=== PATIENT | female | born 1995 | race Hispanic/Latino ===

== ENCOUNTER 2018-12-14 14:41 | Emergency (ER) | payer BC ==
[2018-12-14 16:55] LABS: #Basophils 0.1 thou/uL (0.0-0.2); #Eosinphils 0.2 thou/uL (0.0-0.7); #Lymphocytes 3.4 thou/uL (1.20-3.40); #Monocytes 0.5 thou/uL (0.11-0.59); #Neutrophils 5.3 thou/uL (1.40-6.50); %Basophils 1.1 % (0.0-1.0); %Eosinophils 1.7 % (0.0-10.0); %Lymphocytes 35.8 % (21.0-51.0); %Monocytes 5.4 % (0.0-10.0); %Neutrophils 56.1 % (42.0-75.0); Hemoglobin 13.5 g/dL (12.0-16.0); Mean Corpuscular HGB CONC 34.5 g/dL (32.0-36.0); Mean Corpuscular Hemoglobin 29.5 pg (27.0-31.0); Mean Corpuscular Volume 85.4 fL (78.0-98.0); Mean Platelet Volume 10.4 fL (7.4-10.4); Platelet Count 164 thou/uL (130-400); RBC Distribution Width 11.8 % (11.5-14.5); Red Blood Cell (RBC) Count 4.59 mill/uL (4.20-5.40); White Blood Cell (WBC) Count 9.5 thou/uL (4.8-10.8)
[2018-12-14 17:17] LABS: ALT (SGPT) 111 U/L (8-55); AST (SGOT) 55 U/L (5-34); Albumin 4.5 g/dL (3.5-5.0); Alkaline Phosphatase 67 U/L (40-150); Anion Gap 11 mmol/L (10-20); BUN (Urea Nitrogen) 7 mg/dL (7.0-18.7); Bilirubin, Total 0.9 mg/dL (0.2-1.2); Calc. Creatinine Clearance 0 mL/min (70-130); Calcium 10.2 mg/dL (7.8-10.44); Carbon Dioxide 27 mmol/L (22-29); Chloride 103 mmol/L (98-107); Estimated GFR-MDRD Greater than 90; Globulin 3.6 g/dL (2.4-3.5); Glucose 121 mg/dL (70-105); Potassium 3.6 mmol/L (3.5-5.1); Protein, Total 8.1 g/dL (6.0-8.3); Sodium 137 mmol/L (136-145)
--- NOTE | 2018-12-14 17:20 | CT ---
CT abdomen and pelvis: 12/14/2018 COMPARISON: None HISTORY: Right lower quadrant pain TECHNIQUE: Axial CT imaging obtained at 5 mm intervals from the lung bases through the pubic symphysi s with IV contrast. Coronal reformatted imaging obtained. FINDINGS: The lack of oral contrast limits assessment of the bowel. The imaged lung bases appear unremarkable. No free intraperitoneal air or fluid. The hepatic parenchyma is hypodense, suggesting steatosis. The liver appears otherwise unremarkable. The spleen, gallbladder, pancreas, adrenal glands, and kidneys appear unremarkable. Trace free fluid noted in the pelvis. Limited assessment of the bowel demonstrates no evidence for inflammatory change or obstruction. The appendix is visualized and appears within normal limits. There is a round lesion in the right hemipelvis with Hounsfield units of 10 measuring 5.0 x 4.4 cm, m ost consistent with a right ovarian cyst. There is a partially collapsed cyst/follicle within the left ovary measuring 1.6 cm in greatest dimension. The vascular structures of the abdomen/pelvis appear patent. No lymphadenopathy is seen within the ab domen/pelvis. Osseous structures of the abdomen/pelvis demonstrate no acute findings. IMPRESSION: 5 cm right ovarian cyst.
== END 2018-12-14 18:11 | disposition home or self-care (01) ==
LOC: ERS 14:41
DX: N83.201 Unspecified ovarian cyst, right side (principal); F17.200 Nicotine dependence, unspecified, uncomplicated; R11.0 Nausea
CPT/HCPCS: 74177; 80053; 85025; 96360

== ENCOUNTER 2019-11-27 11:46 | Inpatient (IN) | payer BC ==
[2019-11-27 12:17] LABS: #Basophils 0.1 thou/uL (0.0-0.2); #Eosinphils 0.1 thou/uL (0.0-0.7); #Lymphocytes 2.4 thou/uL (1.20-3.40); #Monocytes 0.5 thou/uL (0.11-0.59); #Neutrophils 6.8 thou/uL (1.40-6.50); %Basophils 0.6 % (0.0-1.0); %Eosinophils 0.7 % (0.0-10.0); %Lymphocytes 24.3 % (21.0-51.0); %Monocytes 5.4 % (0.0-10.0); %Neutrophils 69.1 % (42.0-75.0); Hemoglobin 13.4 g/dL (12.0-16.0); Mean Corpuscular HGB CONC 35.2 g/dL (32.0-36.0); Mean Corpuscular Hemoglobin 29.9 pg (27.0-31.0); Mean Corpuscular Volume 84.8 fL (78.0-98.0); Mean Platelet Volume 10.7 fL (7.4-10.4); Platelet Count 159 thou/uL (130-400); RBC Distribution Width 11.9 % (11.5-14.5); Red Blood Cell (RBC) Count 4.48 mill/uL (4.20-5.40); White Blood Cell (WBC) Count 9.9 thou/uL (4.8-10.8)
[2019-11-27 12:37] LABS: ALT (SGPT) 16 U/L (8-55); AST (SGOT) 13 U/L (5-34); Albumin 4.1 g/dL (3.5-5.0); Alkaline Phosphatase 60 U/L (40-110); Anion Gap 17 mmol/L (10-20); BUN (Urea Nitrogen) 9 mg/dL (7.0-18.7); Bilirubin, Total 0.5 mg/dL (0.2-1.2); Calc. Creatinine Clearance 0 mL/min (70-130); Calcium 10.7 mg/dL (7.8-10.44); Carbon Dioxide 20 mmol/L (22-29); Chloride 101 mmol/L (98-107); Estimated GFR-MDRD Greater than 90; Globulin 3.6 g/dL (2.4-3.5); Glucose 171 mg/dL (70-105); Lipase 38 U/L (8-78); Potassium 3.8 mmol/L (3.5-5.1); Protein, Total 7.7 g/dL (6.0-8.3); Sodium 134 mmol/L (136-145)
[2019-11-27 12:58] LABS: Bacteria/HPF None Seen HPF (None Seen); Bilirubin Negative (Negative); Blood, Urine Negative (Negative); Clarity Clear (Clear); Glucose, Urine (Dipstick) 500 mg/dL (Negative); Leukocyte 75 Leu/uL (Negative); Nitrite Negative (Negative); Protein, Urine (Dipstick) 20 mg/dL (Neg-Trace); RBC/HPF 0-3 HPF (0-3); Squamous Epithelial 0-3 HPF (0-3); Urobilinogen Normal mg/dL (Less than 2)
[2019-11-27] MEDS ORDERED: hydrALAZINE 20 MG/ML VIAL SLOW IVP PRN (13:23)
[2019-11-27] MEDS ORDERED: Promethazine HCl 25 MG/ML VIAL IM PRN (13:23)
[2019-11-27] MEDS ORDERED: Ondansetron PF 4 MG/2 ML Vial IVP PRN (13:23)
--- NOTE | 2019-11-27 13:28 | PDOC.EVN ---
Event Note - Event Note Event Note: Interim H&P 1327 I just spoke with Dr Mason in the ED who called me. This patieny of Dr shell presented to ED as an 18 week OB, G1 with possible LOF. The sono in ED shows little to no fluid. I have discussed the case on the phone with Dr Shell who is sending the chart to L&D. At 18 weeks, with positive FHTs, the hospital policy for [facility] is to observe for now. indication for delivery by policy here is IOL if fever suspected and/or active VB. I am awaiting her arrival to L&D as I have not yet seen the patient. I have placed admit orders for her as we will watch closedly for 24-48 hrs and IVF hydrate.
[2019-11-27 13:39] LABS: Hemoglobin 12.4 g/dL (12.0-16.0); Mean Corpuscular HGB CONC 35.4 g/dL (32.0-36.0); Mean Corpuscular Hemoglobin 30.1 pg (27.0-31.0); Mean Corpuscular Volume 85.2 fL (78.0-98.0); Mean Platelet Volume 10.8 fL (7.4-10.4); Platelet Count 152 thou/uL (130-400); RBC Distribution Width 11.9 % (11.5-14.5); White Blood Cell (WBC) Count 9.6 thou/uL (4.8-10.8)
--- NOTE | 2019-11-27 13:42 | ULT ---
LIMITED OBSTETRICAL ULTRASOUND: 11/27/19 INDICATION: complication. COMPARISON: None. FINDINGS: The cervix is shortened measuring on average 2.47 cm. The placenta is posterior in location. There is coverage of the placenta over the internal os consistent with a complete placenta previa. Cardiac ac tivity is noted in the intrauterine gestation of approximately 144 beats per minute. The gestation is in breech presentation. CHARISSE is significantly diminished measuring 1.2 cm. The visualized biparietal diameter was 4.11 cm giving estimated gestational age of 18 weeks and 3 day s (59th percentile). The head circumference is 15.99 cm giving estimated gestational age of 18 weeks, 6 days (69th percent ile). The abdominal circumference is 12.76 cm giving estimated gestational age of 18 weeks, 2 days (49th pe rcentile). The femoral length is 2.69 cm giving estimated gestational age of 18 weeks, 1 day (41st percentile). Estimated weight is 235 grams +/- 35 grams (0 lb. 8 oz +/- 1 oz) (48th percentile). The estimated gestational age by ultrasound is 18 weeks, 2 days. Estimated due date is 04/27/20. This corresponds to the clinical dates. IMPRESSION: 1. Findings of a live intrauterine gestation. 2. CHARISSE 1.2 cm consistent with oligohydramnios. 3. Complete placenta previa. POS: [facility]
[2019-11-27 14:32] LABS: HBSAg Index 0.14 S/CO (0-0.99); HIV (1/2) Antibody/Antigen Non-Reactive (NonReactive); HIV 1/2 INDEX 0.11 S/CO (<1.00); Hep B Surf Ag Non-Reactive S/CO (NonReactive)
[2019-11-27 14:36] LABS: Syphilis Antibody Nonreactive (Nonreactive); Syphilis Antibody Index 0.03 S/CO (<1.00 Non-Reactive)
[2019-11-27] MEDS: Lactated Ringer's 1,000 ML IV SCH ×2 (15:00→23:10)
--- NOTE | 2019-11-27 15:06 | PDOC.LDHP ---
Labor and Delivery H&P Chief complaint: loss of fluid (at 18 weeks 2 days by EDC (per Dr Uribe)), other HPI: Pt of Dr Uribe. I am at bedside now, with Dr Davis 24 yo G1 at 18 weeks 2 days with LOF x several days ago with last this AM. NO fevers, no VB, no trauma. Review of Systems: complete ROS covered Current gestational age (weeks): 18 (2 days) Dating criteria: last menstrual period Grav: 1 Para: 0 Current complications: none Abnormal US findings: Yes (severe oligo by sono in ED) Current medications: pre- vitamins Previous surgical history: none Allergies/Adverse Reactions: Allergies Allergy/AdvReac Type Severity Reaction Status Date / Time cefprozil [From Cefzil] Allergy Verified 11/27/19 13:36 Social history: other (MJ pre-. No Family HX defects) - Physical Exam Vital signs reviewed and normal: yes General: resting Heart: RRR Lungs: nonlabored breathing [place] contractions every: none - Assessment G1 po at 18 weeks previable ROM at 18 weeks, afebrile. FHTs positive. Policy reviewed with RN in charge. Expectant management favored at this time.We have adddressed limits of viability. ABX may begin at 20 weeks at earliest. Steroids at 23 weeks. IOL if fever or VB. I have discussed risks and policy of [facility] with the patient. Please see interim H&P note prior to this entry - Plan Plan: observation in L&D (serial temps, FHT checks BID. Plan for 48 hr obs ( at least 24 hrs). Detailed discussion reviewed with the patient.)
--- NOTE | 2019-11-27 15:15 | PDOC.EVN ---
Event Note - Event Note Event Note: Viability discussion: Limits of viability reviewed. Goal for viability is around 23 weeks or so. IOL is a possibility NOW at other hospitals based on EGA. Here at [facility] we do expectant care. I did explain to her that transfer to another location for possible IOL at under 20 weeks is an option to her as informed consent and risks /balance of all options available. She understands that expectant management is a possibility and that it is a [facility] [id number]. She agress to expectant care.
[2019-11-27 15:30] VITALS: BMI 33.8
[2019-11-27] MEDS ORDERED: Acetaminophen 500 MG TAB PO PRN (20:29)
[2019-11-28] MEDS: Lactated Ringer's 1,000 ML IV SCH ×3 (07:13→23:34)
--- NOTE | 2019-11-28 07:18 | PDOC.OBAPN ---
FMR OB AP PN: Sub - Interval History Hospital Day: 2 (Patient denies complaints this AM.) Chief Complaint: Previable ROM Indentification: at 18.3 wks Interval History: Denies fevers, cramping, vaginal bleeding. Tolerating PO. FMR OB AP PN: Obj - Maternal Vital signs: BP: 117/69 HR: 92 RR: 18 Tmax: 98.9 Pox: 96% on RA FMR OB AP PN: Exam - Physical Exam General: NAD, awake, alert and oriented HEENT: normocephalic and atraumatic Neck: supple Heart: RRR, normal S1/S2 General: CTAB, no respiratory distress, good air movement Abdomen: soft, gravid, non-tender, bowel sound present Musculoskeletal: pulses present Skin: no rash - Pelvic Exam Vulva: no blood FMR OB AP PN: Data - Labs Lab results: Laboratory Results - last 24 hr 11/27/19 11/27/19 11/27/19 12:04 12:04 12:04 WBC 9.9 RBC 4.48 Hgb 13.4 Hct 38.0 MCV 84.8 MCH 29.9 MCHC 35.2 RDW 11.9 Plt Count 159 MPV 10.7 H Neutrophils % 69.1 Lymphocytes % 24.3 Monocytes % 5.4 Eosinophils % 0.7 Basophils % 0.6 Neutrophils # 6.8 H Lymphocytes # 2.4 Monocytes # 0.5 Eosinophils # 0.1 Basophils # 0.1 Sodium 134 L Potassium 3.8 Chloride 101 Carbon Dioxide 20 L Anion Gap 17 BUN 9 Creatinine 0.61 Estimated GFR (MDRD) Greater than 90 Glucose 171 H Calcium 10.7 H Total Bilirubin 0.5 AST 13 ALT 16 Alkaline Phosphatase 60 Serum Total Protein 7.7 Albumin 4.1 Globulin 3.6 H Albumin/Globulin Ratio 1.1 L Lipase 38 Urine Color Urine Clarity Urine pH Ur Specific [place] Urine Protein Urine Glucose (UA) Urine Ketones Urine Blood Urine Nitrite Urine Bilirubin Urine Urobilinogen Ur Leukocyte Esterase Urine RBC Urine WBC Ur Squamous Epith Cells Urine Bacteria Syphilis IgG/IgM Ab Hep Bs Antigen HIV 1&2 Antigen & Ab Blood Type O POSITIVE Antibody Screen 11/27/19 11/27/19 11/27/19 12:35 13:31 13:31 WBC 9.6 RBC 4.10 L Hgb 12.4 Hct 34.9 L MCV 85.2 MCH 30.1 MCHC 35.4 RDW 11.9 Plt Count 152 MPV 10.8 H Neutrophils % Lymphocytes % Monocytes % Eosinophils % Basophils % Neutrophils # Lymphocytes # Monocytes # Eosinophils # Basophils # Sodium Potassium Chloride Carbon Dioxide Anion Gap BUN Creatinine Estimated GFR (MDRD) Glucose Calcium Total Bilirubin AST ALT Alkaline Phosphatase Serum Total Protein Albumin Globulin Albumin/Globulin Ratio Lipase Urine Color Yellow Urine Clarity Clear Urine pH 5.5 Ur Specific [place] 1.030 Urine Protein 20 Urine Glucose (UA) 500 A Urine Ketones 40 A Urine Blood Negative Urine Nitrite Negative Urine Bilirubin Negative Urine Urobilinogen Normal Ur Leukocyte Esterase 75 A Urine RBC 0-3 Urine WBC 4-6 A Ur Squamous Epith Cells 0-3 Urine Bacteria None Seen Syphilis IgG/IgM Ab Hep Bs Antigen Non-Reactive HIV 1&2 Antigen & Ab Non-Reactive Blood Type Antibody Screen 11/27/19 11/27/19 13:31 13:31 WBC RBC Hgb Hct MCV MCH MCHC RDW Plt Count MPV Neutrophils % Lymphocytes % Monocytes % Eosinophils % Basophils % Neutrophils # Lymphocytes # Monocytes # Eosinophils # Basophils # Sodium Potassium Chloride Carbon Dioxide Anion Gap BUN Creatinine Estimated GFR (MDRD) Glucose Calcium Total Bilirubin AST ALT Alkaline Phosphatase Serum Total Protein Albumin Globulin Albumin/Globulin Ratio Lipase Urine Color Urine Clarity Urine pH Ur Specific [place] Urine Protein Urine Glucose (UA) Urine Ketones Urine Blood Urine Nitrite Urine Bilirubin Urine Urobilinogen Ur Leukocyte Esterase Urine RBC Urine WBC Ur Squamous Epith Cells Urine Bacteria Syphilis IgG/IgM Ab Nonreactive Hep Bs Antigen HIV 1&2 Antigen & Ab Blood Type O POSITIVE Antibody Screen NEGATIVE FMR OB AP PN: A/P - Problem List (1) premature rupture of membranes Current Visit: Yes Status: Acute Code(s): O42.919 - PRETRM JOSE ROM, UNSP TIME BETW RUPT AND ONST LABR, UNSP TRI Discussion: Date/Time: 11/28/19 0717 # Previable ROM, G1 - no fever, leakage of fluid, or vaginal bleeding overnight - 18.3 wks gestation today, previable - Abx at 20wks, Steroids at 23 wks - doppler HR in 140s overnight - expectant mgmt vs IOL discussed at time of admission, expectant mgmt at this time - Monitor for 24 hours more, may consider d/c to home tomorrow pending course
--- NOTE | 2019-11-28 07:29 | PDOC.EVN ---
Event Note - Event Note Event Note: HD 2 (admitted yesterday). No VB, afebrile. Resono ordered this AM. Suspected ROM at 18 weeks with oligo. Expectant care.
--- NOTE | 2019-11-28 08:35 | ULT ---
ULTRASOUND OBSTETRICAL COMPLETE: DATE: 11/28/2019 HISTORY: 24-year-old female with oligohydramnios due to amniotic fluid leak. Evaluate anatomy e specially kidneys and bladder, and heart rate and growth. FINDINGS: number: almaguer lie: Breech Maternal cervix: Poorly visualized and questionably shortened. Placenta: Posterior. Probable placenta previa. Amniotic fluid volume: Subjectively extremely low. CHARISSE = 2cm heart rate: 123 bpm The following anatomy is visualized, with no evidence of anomalies: Head, cerebellum, cisterna magna, and lateral ventricles, are visualized on the current ultrasound. Four-chamber heart and urinary bladder wasn't visualized on the previous ultrasound of yesterday. The rest of the anatomy including kidneys and urinary bladder, are very poorly visualized . bladder is never visualized. biometry: Biparietal diameter (BPD): 3.9 cm 18 w 0 d Head circumference (HC): 15.1 cm 18 w 1 d Abdominal circumference (AC): 13.4 cm 18 w 6 d Femur length (FL): 2.7 cm 18 w 2 d Average ultrasound age (AUA): 18 w 2 d Estimated date of delivery (MILI): 04/28/2020 Estimated weight (EFW): 245 g +/- 36 g IMPRESSION: 1) Live 2nd trimester intrauterine gestation. 2) Estimated gestational age of 18 weeks, 2 days 3) breech lie. 4) oligohydramnios. 5) probable placenta previa. 6) poor visualization of anatomy, in part due to oligohydramnios.
[2019-11-28 12:52] VITALS: BP 112/62; TEMP 99.1
[2019-11-29] MEDS: Lactated Ringer's 1,000 ML IV SCH (07:44)
--- NOTE | 2019-11-29 07:46 | PDOC.OBAPN ---
FMR OB AP PN: Sub - Interval History Hospital Day: 2 Chief Complaint: no complaints overnight, doppler + Interval History: no vaginal bleeding or cramping, tolerating PO, no N/V FMR OB AP PN: Obj - Maternal Vital signs: BP 106/77 P66 T98.4 FMR OB AP PN: Exam - Physical Exam General: NAD, awake, alert and oriented Neck: supple Heart: RRR, normal S1/S2 General: CTAB, no respiratory distress Abdomen: soft, gravid Musculoskeletal: normal gait and station Skin: no rash, good tugor, capillary refill <2 seconds - Pelvic Exam Vulva: no blood FMR OB AP PN: A/P - Problem List (1) premature rupture of membranes Current Visit: Yes Status: Acute Code(s): O42.919 - PRETRM JOSE ROM, UNSP TIME BETW RUPT AND ONST LABR, UNSP TRI Discussion: Date/Time: 11/29/19 0745 # Previable ROM, G1 - no fever, leakage of fluid, or vaginal bleeding overnight - 18.4 wks gestation today, previable - Abx at 20wks, Steroids at 23 wks - doppler HR in 140s overnight - expectant mgmt vs IOL discussed at time of admission, expectant mgmt at this time - repeated US yesterday no changes - spoke with PCP, will plan to d/c home with strict precautions - follow up in clinic x2 weekly, anticipate MFM referral for Level II sono
--- NOTE | 2019-11-29 10:20 | DIS ---
DATE OF ADMISSION: 11/27/2019 DATE OF DISCHARGE: 11/29/2019 RESIDENT: Ashwin Davis MD. DISCHARGE ATTENDING: Christina Zhu MD. CONSULTS: None. PROCEDURES: Transvaginal ultrasound x2 showed oligohydramnios of 2 cm, anatomy could not be well visualized, likely placenta previa, approximately 18 and 2-week fetus, breech presentation, cervix 2.47 cm. PRIMARY DIAGNOSIS: Previable rupture of membranes, suspected. SECONDARY DIAGNOSIS: Placenta previa, oligohydramnios. DISCHARGE MEDICATIONS: vitamin. DISCONTINUED MEDICATIONS: None. HISTORY OF PRESENT ILLNESS/HOSPITAL COURSE: This is a 24-year-old female, who presented to the ER with chief complaint of "feeling something between her legs." Ultimately, an ultrasound was done, which showed oligohydramnios and also a likely placenta previa. The patient never complained of vaginal bleeding. She did have some cramping and contractions on arrival, but these resolved. Throughout her stay in the hospital, the patient did not have any raman of fluids or bleeding. Dopplers were done b.i.d. during the hospitalization, which showed heart tones intact. Expectant management versus induction of labor was discussed with the patient, and ultimately, so decision was made for expectant management. The patient denied any fevers, chills, sweats, or any other constitutional symptoms during her stay. The patient was discharged to home with close followup with her PCP. She will have appointments twice a week for Dopplers and a likely referral to [facility] for a level 2 sono to evaluate for some abnormality causing the oligohydramnios. The patient was given strict precautions including pelvic rest minimal activity and strict return precautions for bleeding or fever or other constitutional symptoms. The patient understands her prognosis and understands the need for close followup should she show any signs of illness or bleeding. DISPOSITION: Stable, but guarded prognosis. DISCHARGE INSTRUCTIONS: 1. Location: Home. 2. Diet: Regular. 3. Activity: The patient is okay to do activities around the home, but advised against strenuous exercise and she needs strict pelvic rest. 4. Followup: Follow up Dr. Uribe's office twice weekly for Dopplers. Anticipate [facility] referral for level 2 sono. Strict return precautions were discussed. Job ID: [id number]
== END 2019-11-29 08:40 | disposition home or self-care (01) | DRG 832 ==
LOC: ERS 11:46 → L&D 14:59 → OBSVTOIN 14:59
PROVIDERS: ADMIT Obstetrics & Gynecology; ATTEND Obstetrics & Gynecology
DX: O42.912 Preterm premature rupture of membranes, unspecified as to length of time between rupture and onset of labor, second trimester (principal); O41.02X0 Oligohydramnios, second trimester, not applicable or unspecified; O44.02 Complete placenta previa NOS or without hemorrhage, second trimester; Z3A.18 18 weeks gestation of pregnancy
CPT/HCPCS: 36415; 76815; 80053; 81003; 81015; 83690; 85025; 86780; 86850; 86900; 86901; 87086; 87340; 87389; 96360; 96361; 99285

== ENCOUNTER 2019-12-02 11:04 | Inpatient (IN) | payer BC ==
[2019-12-02] MEDS ORDERED: Morphine 4 MG/ML VIAL ONE ×2 (11:35→11:59)
[2019-12-02] MEDS ORDERED: Misoprostol 200 MCG TAB ONE (11:40)
[2019-12-02] MEDS ORDERED: Azithromycin 500 MG in Sodium Chloride 0.9% 250 ML 250 ML IVPB ONE (12:18)
--- NOTE | 2019-12-02 12:28 | PDOC.OPDEL ---
OB Operative/Delivery Note Delivery Dr/Surgeon: Audra Assist: Susan Pre-Delivery Diagnosis: active labor Procedure/Post Delivery Dx: spontaneous vaginal delivery Weeks gestation: 18 Anesthesia: none - Findings A Sex: male Weight: 7.231 oz - 1 min: 0 - 5 min: 0 - Additional Findings/Plan Placenta delivered: spontaneous Repaired Obstetrical Laceration: none Estimated blood loss: 205 Compilations/Other Findings: Body, lower extremities in vaginal vault upon arrival to unit. Non-viable male delivered in breech presentation. Placenta delivered spontaneously but not intact. 800mcg cytotec placed rectally. Will continue to monitor. Fetus with no grossly abnormal facies or limbs. Abdomen not intact with contents free, likely from trauma of labor and significant maternal movement prior to head delivery. Upon examination with Dr. Uribe, there appeared to be 2 kidneys visible. Post delivery plan: routine recovery
--- NOTE | 2019-12-02 12:40 | PDOC.FPROB ---
FMR OB H&P: Medications - Current Home Medications: Medication Instructions Recorded Confirmed Type Vitamin 1 tablet PO DAILY 11/27/19 11/27/19 History Allergies/Adverse Reactions: Allergies Allergy/AdvReac Type Severity Reaction Status Date / Time cefprozil [From Cefzil] Allergy Verified 11/27/19 13:36 FMR OB H&P: A/P - Problem List (1) labor Current Visit: Yes Status: Acute Code(s): O60.00 - LABOR WITHOUT DELIVERY, UNSPECIFIED TRIMESTER Discussion: Date/Time: 12/02/19 4091 PCP: Rony HPI: G1 patient with history of suspect PPROM last week present to the ER with contractions with started this morning. She denied vaginal bleeding. She denies fevers, chills, or sweats at home. She was in significant pain upon arrival. History: OB hx: G1, PPROM last week PMH: denies PSH: denies Meds: PNV All: NKDA Soc Hx: denies smoking, alcohol, drugs Fam Hx: denies downs, congenital defects REVIEW OF SYSTEMS: full ROS unobtainable 2/2 active labor Gen: no fever, chills, or sweats OB: as above Skin: no rash, no erythema Vitals: T: 98.5 R: 18 BP: 118/76 P:67 at: 98% on RA PHYSICAL EXAMINATION: General: patinet in pain from active labor at time of admission, NAD , alert and oriented x3 Heart/Cardiovascular System: RRR, Cap refill < 3 seconds, no rub, no murmur Lungs/Respiratory System: clear to auscultation bilaterally. No increased work of breathing. Room air. Abdomen/Gastro-Intestinal System: Gravid Extremities: Warm extremities. No cyanosis or edema. Neuro: No gross deficits appreciated Psychiatry: Awake, Alert and cooperative with exam Skin: no lesions, no rashes Musculoskeletal: Full ROM Administration Professional exam: please see op note A/P: This is a 24 yo here for active labor # labor - Patient delivered, please see Dr. Adamson op note - s/p 800mg cytotec ID, 500mg Azithromycin IV - will keep inpatient for mgmt. of bleeding and awaiting small piece of retained placenta to pass - discussed possibility of indication for D&C with patient, expectant mgmt. at this time
[2019-12-02] MEDS ORDERED: Misoprostol 200 MCG TAB PR PRN (13:21)
[2019-12-02] MEDS ORDERED: Ondansetron PF 4 MG/2 ML Vial IVP PRN (13:21)
[2019-12-02] MEDS ORDERED: Promethazine HCl 25 MG/ML VIAL IM PRN (13:21)
[2019-12-02] MEDS ORDERED: hydrALAZINE 20 MG/ML VIAL SLOW IVP PRN (13:21)
[2019-12-02] MEDS ORDERED: NS / Oxytocin 40 units/1000ml 1,000 ML IV PRN (13:21)
[2019-12-02] MEDS ORDERED: Lidocaine 1% (PF) 30 ML VIAL SC PRN (13:21)
[2019-12-02] MEDS ORDERED: HYDROcodone/Acetaminophen 5/325 mg Tablet PO PRN (13:21)
[2019-12-02] MEDS ORDERED: Morphine 4 MG/ML VIAL SLOW IVP PRN (13:24)
[2019-12-02] MEDS ORDERED: Milk Of Magnesia 30 ML UDCUP PO PRN (13:25)
[2019-12-02] MEDS ORDERED: Bisacodyl 10 MG SUPP PR PRN (13:25)
[2019-12-02] MEDS ORDERED: Ibuprofen 800 MG TAB PO SCH (13:30)
[2019-12-02 14:53] LABS: Hemoglobin 12.7 g/dL (12.0-16.0); Mean Corpuscular HGB CONC 34.5 g/dL (32.0-36.0); Mean Corpuscular Hemoglobin 29.9 pg (27.0-31.0); Mean Corpuscular Volume 86.6 fL (78.0-98.0); Mean Platelet Volume 11.1 fL (7.4-10.4); Platelet Count 158 thou/uL (130-400); Red Blood Cell (RBC) Count 4.26 mill/uL (4.20-5.40); White Blood Cell (WBC) Count 18.2 thou/uL (4.8-10.8)
--- NOTE | 2019-12-02 15:14 | PDOC.BPN ---
- Brief Progress Note Patient passed a 5cm diameter piece of tissue/clot while using the restroom. Bleeding stable at this time. Continue to monitor.
[2019-12-02] MEDS ORDERED: Ferrous Sulfate 325 MG TAB PO SCH (17:00)
[2019-12-02] MEDS ORDERED: Docusate Calcium (SURFAK) 240 MG CAP PO SCH (21:00)
[2019-12-03 06:08] LABS: #Eosinphils 0.1 thou/uL (0.0-0.7); #Monocytes 0.6 thou/uL (0.11-0.59); %Basophils 0.4 % (0.0-1.0); %Eosinophils 0.9 % (0.0-10.0); %Lymphocytes 20.8 % (21.0-51.0); %Neutrophils 71.9 % (42.0-75.0); Mean Corpuscular HGB CONC 34.2 g/dL (32.0-36.0); Mean Corpuscular Hemoglobin 30.1 pg (27.0-31.0); Platelet Count 133 thou/uL (130-400); Red Blood Cell (RBC) Count 3.67 mill/uL (4.20-5.40); White Blood Cell (WBC) Count 9.7 thou/uL (4.8-10.8)
[2019-12-03] MEDS ORDERED: Ibuprofen 800 MG TAB PO SCH (06:15)
--- NOTE | 2019-12-03 08:01 | PDOC.EVN ---
Event Note - Event Note Event Note: No further heavy bleeding. Only light menstrual flow. O:AFVSS ABDOMEN is soft/non tender. A/P: DIU 18 weeks with . Stable overnight. D/c home . F/U 2 weeks in my office.
[2019-12-03] MEDS ORDERED: Adacel (T-DAP) 0.5 ML SYRINGE IM ONE (09:00)
== END 2019-12-03 09:05 | disposition home or self-care (01) | DRG 779 ==
LOC: ERS 11:04 → L&D 11:05 → ERS 11:38 → L&D 11:39
PROVIDERS: ADMIT Obstetrics & Gynecology; ATTEND Family Medicine
PROC: 10E0XZZ Delivery of Products of Conception, External Approach (ICD-10-PCS; principal; 2019-12-02)
PROC: 3E0P7VZ Introduction of Hormone into Female Reproductive, Via Natural or Artificial Opening (ICD-10-PCS; 2019-12-02)
DX: O02.1 Missed abortion (principal); F17.210 Nicotine dependence, cigarettes, uncomplicated; O32.1XX0 Maternal care for breech presentation, not applicable or unspecified; Z88.1 Allergy status to other antibiotic agents; Z3A.18 18 weeks gestation of pregnancy; N39.8 Other specified disorders of urinary system
CPT/HCPCS: 36415; 85025; 85027; 86850; 86900; 86901; 88300; 88305; 99285; J0456; J0690; J2270; J7050

== ENCOUNTER 2020-08-24 14:08 | Inpatient (IN) | payer BC ==
[2020-08-24 14:48] VITALS: BMI 33.8
--- NOTE | 2020-08-24 14:57 | PDOC.LDHP ---
Labor and Delivery H&P Chief complaint: other (Cramping, concern for LOF) HPI: 25 year old with a prior loss at 18 weeks from PPROM followed 4-5 days by labor. Today she called because she coughed and felt something come out. Concerned about fluid. I saw her in the office and did a speculum exam where I saw buldging membranes. I immediately removed the speculum. A quick bedside U/S in the office showed a live baby with subjectively normal CHARISSE. I sent her and her to the hospital for further work up. She does c/o cramping this afternoon as well but they are mild at this time. She is understandably anxious given her history. Current gestational age (weeks): 18 Due date: 01/20/21 Dating criteria: last menstrual period, first trimester ultrasound Grav: 2 Para: 1 (18 week PPROM) OB History Details: Uncomplicated to this point. She has a history of a similar loss last year but at that time it was felt to be PPROM rather than incompetent cervix. Today the concern is cervical incompetence. Current complications: other (Concern for incompetent cervix) Abnormal US findings: No (Has not yet had her 20 week structural survery) Current medications: pre-lola vitamins Previous surgical history: none Allergies/Adverse Reactions: Allergies Allergy/AdvReac Type Severity Reaction Status Date / Time cefprozil [From Cefzil] Allergy Verified 11/27/19 13:36 Social history: none - Physical Exam Vital signs reviewed and normal: yes General: NAD, resting Heart: RRR Lungs: CTAB Abdomen: gravid Extremeties: no edema FHT: category 1 - OB Labs Blood type: O RH: positive Antibody Screen: negative HIV: negative RPR: negative HEPSAg: negative Rubella: immune - Assessment labor at 18 weeks Concern for incompetent cervix Membranes feel and appear intact at this time No vaginal bleeding - Plan Plan: admit to L&D -: Ultrasound for cervical length, CHARISSE, position, placental position Further plan after U/S results Dr. Vyas consulted for assistance in management Consideration for rescue cerclage could be made depending on cervical length and degree of hour-glassing membranes
--- NOTE | 2020-08-24 15:42 | ULT ---
LIMITED OB ULTRASOUND: Date: 08-04-2020 PROVIDED CLINICAL HISTORY: Pre-term labor. FINDINGS: A single live intrauterine gestation is documented in vertex presentation. Cardiac activity of 163 be ats/minute is documented. The cervix appears short, measuring about 2.4 cm. The right and left ovarie s appear sonographically unremarkable. The placenta is anteriorly located without evidence for previa . IMPRESSION: Single live intrauterine gestation as described. Cervical shortening. POS: [facility]
[2020-08-24] MEDS ORDERED: Promethazine HCl 25 MG/ML VIAL IM PRN (15:54)
[2020-08-24] MEDS ORDERED: hydrALAZINE 20 MG/ML VIAL SLOW IVP PRN (15:54)
[2020-08-24] MEDS ORDERED: Ondansetron PF 4 MG/2 ML Vial IVP PRN (15:54)
[2020-08-24] MEDS ORDERED: Acetaminophen 500 MG TAB PO PRN (15:54)
[2020-08-24] MEDS: Butorphanol Tartrate 1 MG/ML VIAL SLOW IVP PRN ×3 (16:43→21:46)
[2020-08-24 16:58] LABS: Mean Corpuscular HGB CONC 35.5 g/dL (32.0-36.0); Mean Corpuscular Hemoglobin 30.9 pg (27.0-31.0); Mean Corpuscular Volume 87.1 fL (78.0-98.0); Mean Platelet Volume 11.3 fL (7.4-10.4); Platelet Count 134 thou/uL (130-400); RBC Distribution Width 12.2 % (11.5-14.5); White Blood Cell (WBC) Count 10.4 thou/uL (4.8-10.8)
[2020-08-24 17:32] LABS: HBSAg Index 0.16 S/CO (0-0.99); Hep B Surf Ag Non-Reactive S/CO (NonReactive); Syphilis Antibody Nonreactive (Nonreactive); Syphilis Antibody Index 0.04 S/CO (<1.00 Non-Reactive)
[2020-08-25] MEDS ORDERED: Acetaminophen 500 MG TAB PO PRN (00:18)
[2020-08-25] MEDS: Butorphanol Tartrate 1 MG/ML VIAL SLOW IVP PRN (00:41)
[2020-08-25 01:35] LABS: SARS-CoV-2 PCR by NAA Not Detected (NotDetected)
[2020-08-25] MEDS ORDERED: FLU VACC QS2020-21(6MOS UP)/PF 60 MCG/0.5 ML SYRINGE IM ONE (09:00)
[2020-08-25] MEDS ORDERED: Azithromycin 500 MG VIAL ONE (09:14)
[2020-08-25] MEDS ORDERED: Lidocaine 1% (PF) 30 ML VIAL ONE (09:15)
[2020-08-25] MEDS ORDERED: Fentanyl 100 MCG/2 ML VIAL ONE (09:16)
[2020-08-25] MEDS ORDERED: Azithromycin 1,000 MG in Sodium Chloride 0.9% 500 ML IVPB SCH (09:30)
[2020-08-25] MEDS ORDERED: INDOMETHACIN SODIUM TRIHYDRATE IVPB SCH ×2 (09:30→09:45)
[2020-08-25] MEDS ORDERED: SODIUM CHLORIDE 0.9% IVPB SCH (09:45)
[2020-08-25] MEDS ORDERED: Indomethacin 25 mg Capsule PO SCH (09:45)
--- NOTE | 2020-08-25 10:27 | ULT ---
ULTRASOUND OBSTETRICAL LIMITED: DATE: 08/25/2020. TIME: 8:28 AM. HISTORY: A 25-year-old female in 2nd trimester undergoing labor. Hour-glassing membranes. FINDINGS: Cervix is shortened to approximately 1 cm in length. Endocervical canal is open, with canal diameter of approximately 0.4 cm. Amniotic fluid has leaked into a large fluid collection filling and expanding the vaginal cavity, wit h dimensions of that fluid collection measuring approximately 7.5 x 6 cm. CHARISSE 7.5 cm. heart rate: 145 b.p.m. Placenta: Anterior. No placenta previa. lie: Cephalic. According to the passenger tire inspector's note, Dr. Benavides was present during the ultrasound exam. IMPRESSION: 1. Shortened cervix with open endocervical canal. 2. Large collection of amniotic fluid expanding the vaginal cavity. POS: H
[2020-08-25] MEDS ORDERED: Ketorolac Tromethamine 30 MG/ML VIAL IVP PRN (11:02)
[2020-08-25] MEDS ORDERED: Ondansetron HCl/PF 4 MG/2 ML Vial IVP PRN (11:02)
[2020-08-25] MEDS ORDERED: HYDROmorphone 2 MG/ML VIAL SLOW IVP PRN (11:02)
[2020-08-25] MEDS ORDERED: Promethazine HCl 25 MG/ML VIAL SLOW IVP PRN (11:02)
[2020-08-25] MEDS ORDERED: Promethazine HCl 25 MG/ML VIAL IM PRN (11:02)
--- NOTE | 2020-08-25 13:52 | PDOC.EVN ---
Event Note - Event Note Event Note: I came and re-evaluated the patient this morning. Repeat U/S showed enlarging fluid pocket in the vagina. Cervical length remains short, now read as 1cm. Discussed at length with Dr. Benavides and the patient and her . He was willing to try a rescue cerclage and they wanted to try as well. FHT remain present. She went to the OR and anesthesia was initiated. He was able to reduce the bag but unable to find enough cervix to do a cerclage. At that time, she gagged from the ET tube and the BOW ruptured under that pressure. She is now back on L&D and I have been talking with her and her . The plan at this time is to observe her overnight for signs of labor. If no signs of labor then we may D/C home tomorrow with labor and infection precautions. We discussed the prognosis and the likelihood of miscarriage. They fully understand. It is clear at this time that she has an incompetent cervix and we discussed that all future pregnancies will need a cerclage and progesterone and that there is still a risk of labor and miscarriage. We can revisit this more in the future. A/P: 1. Incompetent cervix 2. Observation for signs of labor 3. FHT still present so expectant management for now 4. OK to eat and ambulate to the bathroom
[2020-08-25] MEDS: Indomethacin 25 mg Capsule PO SCH ×2 (15:53→19:57)
[2020-08-25 16:01] VITALS: BP 107/63; TEMP 99
--- NOTE | 2020-08-26 00:05 | OP ---
DATE OF PROCEDURE: 08/25/2020 PRIMARY OB: Luba Baltazar MD PREOPERATIVE DIAGNOSES: 1. Intrauterine at 18 weeks and 6 days. 2. Incompetent cervix with bulging membranes. POSTOPERATIVE DIAGNOSES: 1. Intrauterine at 18 weeks and 6 days. 2. Incompetent cervix with bulging membranes. 3. Previable, , premature rupture of membranes. Surgeon: KATELYN Hamilton Procedure: Exam under anesthesia ANESTHESIA: General. ESTIMATED BLOOD LOSS: Less than 50 mL. COMPLICATIONS: Rupture of membranes. COUNTS: Correct. CONDITION: Stable to recovery room. SPECIMENS: None. INDICATIONS: The patient is a 25-year-old female, G2, P1, presenting to Labor and Delivery with concerns of leakage of fluid and cramping. Upon arrival, the patient was noted to have hourglassing membranes. Cervical length was noted to be 1.7 cm on ultrasound. There were attempts made yesterday to transfer the patient to an outside facility for possible rescue cerclage, but was not accepted. Today upon arrival to my shift for Labor and Delivery, I discussed with the patient the options of expectant management versus rescue cerclage. We discussed the high chance of failure with the possibility of success. Also discussed the possibility of spontaneous rupture of membranes during the case and subsequent labor. DESCRIPTION OF PROCEDURE: After giving adequate relocation counselor and receiving informed consent, patient was taken to the operating room, where she was placed under general anesthesia without difficulty, then placed in dorsal lithotomy position with Marino stirrups. Attention was placed vaginally with a weighted speculum and right angle retractors to identify the cervix. There were bulging membranes about nursing home down the length of the vaginal canal with 2 moist ring forceps, sponge sticks. The amnion was gently pressed back into the lower uterine segment and uterus in an attempt to identify cervix. Anteriorly, posteriorly and laterally, there was no cervix identified on initial inspection and the sponge sticks were removed and bladder which had not been drained prior to the case was drained for a different evaluation. All sponge sticks were placed again for attempt to identify the cervix without success. An attempt to reposition the retractors, the sponge sticks were removed. During this time, the patient began coughing violently which caused spontaneous rupture of membranes splashing the amniotic fluid. At this point in time, the procedure was terminated given the change in membrane status. There was no bleeding in the case to speak of. The patient was taken out of lithotomy position and extubated and taken to recovery room in stable condition. Job ID: [id number]
== END 2020-08-25 21:20 | disposition home or self-care (01) | DRG 831 ==
LOC: L&D/OP 14:08 → L&D 15:55 → UNDOADMIN 08-25 06:21 → L&D 08-25 06:21 → UNDODISIN 08-25 21:20
PROVIDERS: ADMIT Family Medicine; ATTEND Family Medicine
PROC: 10J07ZZ Inspection of Products of Conception, Via Natural or Artificial Opening (ICD-10-PCS; principal; 2020-08-25)
DX: O42.012 Preterm premature rupture of membranes, onset of labor within 24 hours of rupture, second trimester (principal); O34.32 Maternal care for cervical incompetence, second trimester; Z3A.18 18 weeks gestation of pregnancy; Z23 Encounter for immunization; Z20.822 Contact with and (suspected) exposure to COVID-19
CPT/HCPCS: 36415; 76815; 85027; 86780; 86850; 86900; 86901; 87340; 87635; 99285; J0595; J2001; J3010; U0003; U0005

== ENCOUNTER 2020-08-26 06:22 | Inpatient (IN) | payer BC ==
[2020-08-26 06:48] VITALS: BMI 34.7
[2020-08-26] MEDS ORDERED: FLU VACC QS2020-21(6MOS UP)/PF 60 MCG/0.5 ML SYRINGE IM ONE (07:00)
[2020-08-26] MEDS ORDERED: Promethazine HCl 25 MG/ML VIAL IM SCH (07:15)
[2020-08-26] MEDS ORDERED: Morphine 10 MG/ML VIAL IM SCH (07:15)
[2020-08-26] MEDS ORDERED: Diphenoxylate HCl/Atropine Tablet PO PRN ×2 (09:30)
[2020-08-26] MEDS ORDERED: Promethazine HCl 25 MG/ML VIAL IM PRN ×2 (09:30→11:08)
[2020-08-26] MEDS ORDERED: Misoprostol 200 MCG TAB PR PRN (09:30)
[2020-08-26] MEDS ORDERED: Carboprost 250 MCG/ML AMP IM PRN (09:30)
[2020-08-26] MEDS ORDERED: Lactated Ringer's 1,000 ML IV SCH (09:30)
[2020-08-26] MEDS ORDERED: Methylergonovine 0.2 MG/ML VIAL IM PRN (09:30)
[2020-08-26] MEDS ORDERED: Acetaminophen 500 MG TAB PO PRN (09:30)
[2020-08-26] MEDS ORDERED: Ibuprofen 800 MG TAB PO PRN ×2 (09:30→22:59)
[2020-08-26] MEDS ORDERED: Lidocaine 1% (PF) 30 ML VIAL SC PRN (09:30)
[2020-08-26] MEDS ORDERED: Ondansetron PF 4 MG/2 ML Vial IVP PRN ×2 (09:30→11:08)
[2020-08-26] MEDS ORDERED: hydrALAZINE 20 MG/ML VIAL SLOW IVP PRN (09:30)
[2020-08-26] MEDS ORDERED: HYDROcodone/Acetaminophen 5/325 mg Tablet PO PRN ×4 (09:30→22:59)
[2020-08-26] MEDS ORDERED: NS w/ Oxytocin 30 units 500 ML IV SCH (10:00)
[2020-08-26 10:01] LABS: Hemoglobin 12.3 g/dL (12.0-16.0); Mean Corpuscular HGB CONC 34.3 g/dL (32.0-36.0); Mean Corpuscular Hemoglobin 29.6 pg (27.0-31.0); Mean Corpuscular Volume 86.2 fL (78.0-98.0); Mean Platelet Volume 10.8 fL (7.4-10.4); Platelet Count 133 thou/uL (130-400); RBC Distribution Width 12.1 % (11.5-14.5); Red Blood Cell (RBC) Count 4.17 mill/uL (4.20-5.40)
[2020-08-26] MEDS: Butorphanol Tartrate 1 MG/ML VIAL SLOW IVP PRN ×2 (10:05→11:15)
[2020-08-26] MEDS ORDERED: Fentanyl 4 mcg/Bup 0.1% Cadd 100 ML ONE (10:08)
[2020-08-26] MEDS ORDERED: Fentanyl 100 MCG/2 ML VIAL ONE (10:45)
[2020-08-26] MEDS ORDERED: diphenhydrAMINE 50 MG/ML VIAL IVP PRN (11:08)
[2020-08-26] MEDS ORDERED: ePHEDrine 50 MG/ML VIAL SLOW IVP PRN (11:08)
[2020-08-26] MEDS ORDERED: Acetaminophen 325 MG TAB PO PRN (11:08)
[2020-08-26] MEDS ORDERED: Naloxone HCl 0.4 mg/ml Vial IVP PRN ×2 (11:08)
[2020-08-26] MEDS ORDERED: Lactated Ringer's 500 ML IV PRN (11:08)
[2020-08-26] MEDS ORDERED: Fentanyl 4 mcg/Bupivacaine 0.1% Cassette 100 ML EPIDURAL SCH (11:15)
[2020-08-26] MEDS ORDERED: Communication Order-Pharmacy FS PRN (11:15)
[2020-08-26 11:23] LABS: HBSAg Index 0.23 S/CO (0-0.99); Hep B Surf Ag Non-Reactive S/CO (NonReactive); Syphilis Antibody Nonreactive (Nonreactive); Syphilis Antibody Index 0.03 S/CO (<1.00 Non-Reactive)
[2020-08-26] MEDS ORDERED: Bupivacaine HCl 0.25%/Epi 0.0005/PF 10 ML VIAL FS ONE (11:26)
[2020-08-26] MEDS ORDERED: Cyclobenzaprine 10 MG TAB PO SCH (13:45)
[2020-08-26 14:30] LABS: ALT (SGPT) 8 U/L (8-55); AST (SGOT) 9 U/L (5-34); Albumin 3.3 g/dL (3.5-5.0); Alkaline Phosphatase 56 U/L (40-110); Anion Gap 12 mmol/L (10-20); BUN (Urea Nitrogen) 5 mg/dL (7.0-18.7); Bilirubin, Total 0.6 mg/dL (0.2-1.2); Calc. Creatinine Clearance 205 mL/min (70-130); Calcium 8.7 mg/dL (7.8-10.44); Carbon Dioxide 26 mmol/L (22-29); Chloride 104 mmol/L (98-107); Glucose 206 mg/dL (70-105); Lipase 31 U/L (8-78); Potassium 3.6 mmol/L (3.5-5.1); Protein, Total 6.3 g/dL (6.0-8.3); Sodium 138 mmol/L (136-145)
[2020-08-26 15:52] LABS: Hemoglobin A1c 8.2 % (4.0-6.0)
== END 2020-08-27 09:16 | disposition home or self-care (01) | DRG 805 ==
LOC: L&D 06:22
PROVIDERS: ADMIT Family Medicine; ATTEND Family Medicine
PROC: 10E0XZZ Delivery of Products of Conception, External Approach (ICD-10-PCS; principal; 2020-08-26)
DX: O42.012 Preterm premature rupture of membranes, onset of labor within 24 hours of rupture, second trimester (principal); O34.32 Maternal care for cervical incompetence, second trimester; Z37.0 Single live birth; O41.1220 Chorioamnionitis, second trimester, not applicable or unspecified; Z23 Encounter for immunization; Z20.822 Contact with and (suspected) exposure to COVID-19; Z3A.18 18 weeks gestation of pregnancy; Z88.1 Allergy status to other antibiotic agents
CPT/HCPCS: 36415; 80053; 83036; 83690; 85027; 86780; 86850; 86900; 86901; 87340; 88300; 88305; J0595; J2550